=== PATIENT | male | born 1980 | race African-American/Black ===

== ENCOUNTER 2017-04-14 12:49 | Day surgery (SDC) | payer OTHER ==
[~2017-04-14] VITALS: Ht 182.9 cm; Wt 100.1 kg
[~2017-04-14 12:49] MED LIST: AMLO-147 PO; ATEN50TA PO; HYD25 PO; IBUP800T25 PO; LOSA100T7 PO; OMEP20CA16 PO; TERB250T46 PO
[2017-04-14] MEDS ORDERED: LISI40TA9 PO (13:39)
[2017-04-14 13:49] VITALS: Ht 182.9 cm; Wt 100.1 kg
[2017-04-14 14:37] VITALS: BP 107/68; PULSE 60; RESP 20
[2017-04-14 15:45] VITALS: BP 140/95; PULSE 56; RESP 12
[2017-04-14] MEDS ORDERED: LIDOCAINE 2% (SDV) 5 ML INJ ONE (18:03)
[2017-04-14] MEDS ORDERED: PROPOFOL 60 ML ONE (18:03)
--- NOTE | 2017-04-19 08:14 | GILP ---
DATE OF PROCEDURE: 04/14/2017 PROCEDURE: Colonoscopy with biopsies. HISTORY AND INDICATIONS: This is a patient is here with complaints of diffuse abdominal pain, postprandial bloating, and changes in bowel habits. PREMEDICATION: Monitored anesthesia care by Anesthesiologist. INSTRUMENT USED: Colonoscope. PREPARATION: Adequate. TECHNIQUE: After informed consent, with the patient/relatives understanding the procedure, its indications potential risks and complications, including but not limited to: allergic reaction, bleeding, perforation, infection, missed lesions and after all pertinent questions were answered to the patient's satisfaction, the patient/relatives signed the witnessed informed consent. Following this, premedication was administered slowly IV push by under careful cardiovascular and respiratory monitoring with pulse oximetry, automatic blood pressure and satellite project site monitor. Once the sedative effect was achieved, the patient was placed in the left lateral decubitus position, digital rectal examination was performed. The colonoscope was then introduced and advanced under visual control throughout all segments of the colon including: the rectum, sigmoid, descending colon, splenic flexure, transverse colon, hepatic flexure, ascending colon and finally reaching the cecum which was clearly identified by transillumination, finger indentation and the ileocecal valve. Careful examination of the mucosa of the lower gastrointestinal tract both on insertion as well as withdrawal of the instrument disclosed the following findings: RECTAL EXAMINATION: No evidence of perirectal disease, no masses. COLONIC MUCOSA: The mucosa of all segments of the colon appears within normal limits. There is no evidence of inflammatory changes, diverticular formation, polyps or other neoplasms, vascular malformation, or any other abnormality. The instrument was then withdrawn, the patient tolerated the procedure well and was transferred out of the Endoscopy Suite awake and in good condition to continue recovery under observation. Random biopsies were obtained of the right and left side of her colon to rule out microscopic lymphocytic collagenous colitis. No additional abnormalities noted with the exception of moderate- sized internal hemorrhoids. IMPRESSION: 1. Normal colonic mucosa at the cecum. Rule out microscopic lymphocytic collagenous colitis. Biopsies are obtained, right and left colon. 2. Moderate-sized internal hemorrhoids. RECOMMENDATIONS: Follow up as an outpatient. Outpatient pathology will review as soon as available. Further recommendations will depend on the patient's clinical course. Dictated By: Radha Bolton MD /nithya/maikel /Document#: [id number]
--- NOTE | 2017-04-19 08:16 | GILP ---
DATE OF PROCEDURE: 04/14/2017 PROCEDURE PERFORMED: Esophagogastroduodenoscopy with biopsies. INDICATION FOR PROCEDURE: The patient is being evaluated for abdominal pain and postprandial bloating and changes in bowel habits. ANESTHESIA: Monitored anesthesia care by Anesthesiologist. INSTRUMENTS USED: Sterile scope. TECHNIQUE: After informed consent, with the patient/relatives understanding the procedure, its indications, potential risks and complications, including but not limited to: allergic reaction, bleeding, perforation or infection, and after all pertinent questions were answered to the patients satisfaction, the patient/relatives signed witnessed informed consent. Following this, premedication was administered slowly IV push under careful cardiovascular and respiratory monitoring with pulse oximetry, automatic blood pressure and social worker assistant. Once the sedative effect was achieved the patient was place in the left lateral decubitus, the panendoscope was introduced and advanced under visual control. Careful examination of the upper gastrointestinal tract, both on insertion as well as withdrawal of the instrument disclosed the following findings: ESOPHAGUS: The distal esophagus shows moderate erythema and edema in the mucosa in the EG junction. STOMACH: Upon entrance to the stomach air was insufflated, the gastric jara distended normally. There mucosa and fundus and antrum of stomach were carefully examined and shows erythema and edema of the mucosa of a moderate degree. Biopsies were obtained to rule out H. pylori infection. PYLORUS: The pylorus appears patent and within normal limits, with no evidence of gastric outlet obstruction. DUODENUM: The duodenal mucosa was carefully examined in the duodenal bulb as well as the second portion of the duodenum and appears unremarkable with no evidence of duodenitis, ulcer or neoplasm. The instrument was then withdrawn, the patient tolerated the procedure well and was transfer out of the endoscopy suite awake, and in good condition to continue recovery under observation. IMPRESSION: 1. Moderate distal esophagitis. 2. Gastritis, rule out H. pylori infection. Biopsies are obtained. RECOMMENDATIONS: The patient will be treated with PPIs. Pathology will review as soon as available. Further recommendation is pending his clinical course, as well as review of biopsies. Dictated By: Radha Bolton MD /nithya/maikel /Document#: [id number]
== END 2017-04-14 16:22 | disposition home or self-care (01) ==
LOC: GIL 12:49
PROVIDERS: ATTEND Internal Medicine Gastroenterology
DX: R19.4 Change in bowel habit (principal); K20.8 Other esophagitis; K29.70 Gastritis, unspecified, without bleeding; K64.8 Other hemorrhoids; I10 Essential (primary) hypertension
CPT/HCPCS: 43239; 45380; 88305; 88312; Z7610